=== PATIENT | female | born 1965 | race Caucasian/White ===

== ENCOUNTER 2016-12-02 11:45 | Emergency (ER) | payer OTHER ==
[~2016-12-02] VITALS: Ht 160 cm; Wt 56.7 kg
[~2016-12-02 11:45] MED LIST: HYDROCODONE BIT1 T11 PO; MOTRIN800 MG PO; NAPROSYN500 MG PO; PROVERA5 MG PO; VICODIN 500 MG-1 TAB PO
[2016-12-02] MEDS ORDERED: NAPROSYN500 MG PO ×2 (12:25→13:12)
== END 2016-12-02 13:01 | disposition home or self-care (01) ==
LOC: ED 11:45
DX: M25.561 Pain in right knee (principal); M25.461 Effusion, right knee; F17.200 Nicotine dependence, unspecified, uncomplicated; Z88.1 Allergy status to other antibiotic agents

== ENCOUNTER → 2022-11-07 | Outpatient (CLI) | payer OTHER | END | disposition home or self-care (01) | LOC: MRI 00:26 | PROVIDERS: ATTEND Internal Medicine | DX: M47.816 Spondylosis without myelopathy or radiculopathy, lumbar region (principal); M51.36 Other intervertebral disc degeneration, lumbar region; M48.07 Spinal stenosis, lumbosacral region; M48.061 Spinal stenosis, lumbar region without neurogenic claudication ==

== ENCOUNTER 2023-08-24 09:38 | Emergency (ER) | payer OTHER ==
[~2023-08-24] VITALS: Ht 160 cm; Wt 54.9 kg
[2023-08-24] MEDS ORDERED: Albuterol Sulf/Ipratropium 3 ML VIAL NEB ONE (10:00)
[2023-08-24 10:12] LABS: BASO # 0.1 10*3/uL (0.0-0.1); BASO % 1.2 % (0.0-1.0); EOS % 12.7 % (1.0-4.0); HEMATOCRIT 42.9 % (37.0-47.0); LYMPH # 1.9 10*3/uL (1.3-4.4); MEAN CELL VOLUME 88.3 fl (81.0-99.0); MEAN CORPUSCULAR HGB CONC 32.9 g/dl (33.0-37.0); MEAN PLATELET VOLUME 9.5 fl (9.6-12.3); MONO # 0.6 10*3/uL (0.1-1.0); MONO % 7.3 % (3.0-9.0); NEUT # 4.3 10*3/uL (2.3-7.9); NEUT % 54.5 % (47.0-73.0); PLATELET COUNT AUTOMATED 346 10*3/uL (130-400); RED BLOOD COUNT 4.86 10*6/uL (4.10-5.10); RED CELL DISTRI WIDTH 12.6 % (0-14.5); WHITE BLOOD COUNT 7.8 10*3/uL (4.8-10.8)
[2023-08-24] MEDS ORDERED: Ipratropium Brom3 ML INH (10:26)
[2023-08-24] MEDS ORDERED: PREDNISONE50 MG PO (10:26)
[2023-08-24] MEDS ORDERED: ZITHROMAX250 MG PO (10:26)
[2023-08-24] MEDS ORDERED: PROAIR RESPICL90 MCG INH (10:26)
[2023-08-24 10:45] LABS: ALKALINE PHOSPHATASE 84 U/L (46-116); BUN 14 mg/dl (9-23); CHLORIDE 108 mmol/L (98-107); POTASSIUM 4.2 mmol/L (3.4-5.1); SGPT/ALT 13 U/L (5-49); TOTAL PROTEIN 7.3 gm/dL (6.0-8.0)
== END 2023-08-24 11:18 | disposition home or self-care (01) ==
LOC: ED 09:38
PROVIDERS: Student in an Organized Health Care Education/Training Program
DX: J45.909 Unspecified asthma, uncomplicated (principal); Z88.1 Allergy status to other antibiotic agents; Z90.710 Acquired absence of both cervix and uterus

== ENCOUNTER 2023-08-25 16:54 | Inpatient (IN) | payer OTHER ==
[~2023-08-25] VITALS: Ht 160 cm; Wt 53.2 kg
[~2023-08-25 16:54] MED LIST changes: +Ipratropium Brom3 ML INH; +PREDNISONE50 MG PO; +PROAIR RESPICL90 MCG INH; +ZITHROMAX250 MG PO
[2023-08-25 17:06] VITALS: BP 146/72
[2023-08-25] MEDS ORDERED: methylPREDNISolone sod succ 125 MG VIAL IV ONE (17:40)
[2023-08-25] MEDS ORDERED: Albuterol Sulf/Ipratropium 3 ML VIAL NEB ONE (17:55)
[2023-08-25 17:58] LABS: BASO % 0.2 % (0.0-1.0); LYMPH # 0.8 10*3/uL (1.3-4.4); MEAN CELL VOLUME 88.3 fl (81.0-99.0); MEAN CORPUSCULAR HGB 29.4 pg (27.0-31.0); MEAN CORPUSCULAR HGB CONC 33.3 g/dl (33.0-37.0); MEAN PLATELET VOLUME 9.6 fl (9.6-12.3); MONO # 0.3 10*3/uL (0.1-1.0); MONO % 2.7 % (3.0-9.0); NEUT # 9.3 10*3/uL (2.3-7.9); NEUT % 88.8 % (47.0-73.0); PLATELET COUNT AUTOMATED 331 10*3/uL (130-400); RED BLOOD COUNT 4.53 10*6/uL (4.10-5.10); RED CELL DISTRI WIDTH 12.7 % (0-14.5); WHITE BLOOD COUNT 10.4 10*3/uL (4.8-10.8)
[2023-08-25 18:17] LABS: ALKALINE PHOSPHATASE 84 U/L (46-116); BUN 20 mg/dl (9-23); CHLORIDE 107 mmol/L (98-107); POTASSIUM 4.4 mmol/L (3.4-5.1); SGPT/ALT 15 U/L (5-49); TOTAL PROTEIN 7.2 gm/dL (6.0-8.0)
[2023-08-25] MEDS ORDERED: Ceftriaxone Sodium 1 GM/10 ML SYR IV ONE (19:05)
[2023-08-25] MEDS ORDERED: AZITHROMYCIN 250 ML IV ONE (19:05)
[2023-08-25 19:32] VITALS: BP 140/77
[2023-08-25] MEDS ORDERED: BISACODYL 10 MG SUPP R PRN (20:00)
[2023-08-25] MEDS ORDERED: Ondansetron Hydrochloride 4 MG/2 ML VIAL IV PRN (20:00)
[2023-08-25] MEDS ORDERED: Magnesium Hydroxide 30 ML UDC PO PRN (20:00)
[2023-08-25] MEDS ORDERED: BISACODYL 5 MG TAB PO PRN (20:00)
[2023-08-25] MEDS ORDERED: ACETAMINOPHEN 650 MG SUPP R PRN (20:00)
[2023-08-25] MEDS ORDERED: ACETAMINOPHEN 325 MG TAB PO PRN (20:00)
[2023-08-25] MEDS ORDERED: Albuterol Sulf/Ipratropium 3 ML VIAL NEB SCH (20:05)
[2023-08-25] MEDS ORDERED: Nicotine 21 MG PATCH T PRN (21:30)
[2023-08-25] MEDS ORDERED: GUAIFENESIN 600 MG TAB ER PO SCH (22:00)
[2023-08-25 23:23] VITALS: BP 146/60
[2023-08-26 06:16] VITALS: BP 166/88
[2023-08-26 06:33] LABS: BASO % 0.1 % (0.0-1.0); HEMATOCRIT 41.8 % (37.0-47.0); LYMPH # 1.7 10*3/uL (1.3-4.4); LYMPH % 15.3 % (27.0-41.0); MEAN CELL VOLUME 88.2 fl (81.0-99.0); MEAN CORPUSCULAR HGB 28.5 pg (27.0-31.0); MEAN CORPUSCULAR HGB CONC 32.3 g/dl (33.0-37.0); MEAN PLATELET VOLUME 9.7 fl (9.6-12.3); MONO # 0.7 10*3/uL (0.1-1.0); MONO % 6.1 % (3.0-9.0); NEUT # 8.4 10*3/uL (2.3-7.9); NEUT % 78.1 % (47.0-73.0); PLATELET COUNT AUTOMATED 361 10*3/uL (130-400); RED BLOOD COUNT 4.74 10*6/uL (4.10-5.10); RED CELL DISTRI WIDTH 12.7 % (0-14.5); WHITE BLOOD COUNT 10.8 10*3/uL (4.8-10.8)
[2023-08-26 07:15] LABS: ALKALINE PHOSPHATASE 75 U/L (46-116); BUN 18 mg/dl (9-23); CHLORIDE 108 mmol/L (98-107); CHOLESTEROL 158 mg/dL (<200); LDL CHOLESTEROL 74 mg/dL (9-159); POTASSIUM 4.2 mmol/L (3.4-5.1); SGPT/ALT 17 U/L (5-49); TOTAL PROTEIN 7.1 gm/dL (6.0-8.0); TRIGLYCERIDES 48 mg/dl (<150)
[2023-08-26] MEDS ORDERED: methylPREDNISolone sod succ 40 MG VIAL IV SCH (10:00)
[2023-08-26] MEDS ORDERED: Enoxaparin Sodium 40 MG/0.4 ML SYR SC SCH (10:00)
[2023-08-26 15:10] VITALS: BP 160/80
[2023-08-26] MEDS ORDERED: Ceftriaxone Sodium 1 GM,IV 1 EA in SYRINGE INFUSION 10 ML IV SCH (18:00)
[2023-08-26] MEDS ORDERED: AZITHROMYCIN 250 ML IV SCH (20:00)
[2023-08-26 21:30] VITALS: BP 166/82
[2023-08-27] VITALS: BP 160/82
[2023-08-27 06:17] LABS: BASO % 0.1 % (0.0-1.0); HEMATOCRIT 42.6 % (37.0-47.0); LYMPH # 1.6 10*3/uL (1.3-4.4); LYMPH % 13.6 % (27.0-41.0); MEAN CELL VOLUME 88.8 fl (81.0-99.0); MEAN CORPUSCULAR HGB 28.5 pg (27.0-31.0); MEAN CORPUSCULAR HGB CONC 32.2 g/dl (33.0-37.0); MEAN PLATELET VOLUME 9.9 fl (9.6-12.3); MONO # 0.4 10*3/uL (0.1-1.0); MONO % 3.4 % (3.0-9.0); NEUT # 9.9 10*3/uL (2.3-7.9); NEUT % 82.4 % (47.0-73.0); PLATELET COUNT AUTOMATED 323 10*3/uL (130-400); RED CELL DISTRI WIDTH 12.5 % (0-14.5)
[2023-08-27 06:26] LABS: BUN 18 mg/dl (9-23); CHLORIDE 108 mmol/L (98-107); POTASSIUM 4.5 mmol/L (3.4-5.1)
[2023-08-27 08:00] VITALS: BP 150/88
[2023-08-27] MEDS ORDERED: Cholecalciferol 2,000 UNIT TABLET (50 MCG) PO SCH (10:00)
[2023-08-27 12:00] VITALS: BP 160/70
[2023-08-27 16:24] VITALS: BP 158/86
[2023-08-27 20:00] VITALS: BP 188/87
[2023-08-28] VITALS (8 sets, daily range): BP systolic 129–190; BP diastolic 77–100
[2023-08-28 06:12] LABS: BASO % 0.2 % (0.0-1.0); HEMATOCRIT 40.6 % (37.0-47.0); LYMPH # 1.7 10*3/uL (1.3-4.4); LYMPH % 17.8 % (27.0-41.0); MEAN CORPUSCULAR HGB 28.7 pg (27.0-31.0); MEAN CORPUSCULAR HGB CONC 32.3 g/dl (33.0-37.0); MEAN PLATELET VOLUME 9.9 fl (9.6-12.3); MONO # 0.6 10*3/uL (0.1-1.0); MONO % 6.4 % (3.0-9.0); NEUT # 7.2 10*3/uL (2.3-7.9); NEUT % 75.1 % (47.0-73.0); PLATELET COUNT AUTOMATED 329 10*3/uL (130-400); RED BLOOD COUNT 4.56 10*6/uL (4.10-5.10); RED CELL DISTRI WIDTH 12.5 % (0-14.5); WHITE BLOOD COUNT 9.5 10*3/uL (4.8-10.8)
[2023-08-28] MEDS ORDERED: LISINOPRIL 10 MG TAB PO SCH (07:20)
[2023-08-28] MEDS ORDERED: MAGNESIUM SULFATE 50 ML IV ONE (11:55)
[2023-08-28] MEDS ORDERED: TEMAZEPAM 15 MG CAP PO PRN (22:00)
[2023-08-29] VITALS: BP 134/75
[2023-08-29 06:44] LABS: BUN 14 mg/dl (9-23); CHLORIDE 106 mmol/L (98-107); POTASSIUM 4.9 mmol/L (3.4-5.1)
[2023-08-29 07:50] VITALS: BP 132/78
[2023-08-29 12:00] VITALS: BP 136/87
[2023-08-29 16:00] VITALS: BP 144/87
[2023-08-29 20:00] VITALS: BP 147/84
[2023-08-30] VITALS: BP 142/76
[2023-08-30 06:43] LABS: BASO % 0.1 % (0.0-1.0); EOS % 0.1 % (1.0-4.0); HEMATOCRIT 42.7 % (37.0-47.0); LYMPH # 2.1 10*3/uL (1.3-4.4); LYMPH % 16.9 % (27.0-41.0); MEAN CELL VOLUME 87.5 fl (81.0-99.0); MEAN CORPUSCULAR HGB 29.3 pg (27.0-31.0); MEAN CORPUSCULAR HGB CONC 33.5 g/dl (33.0-37.0); MEAN PLATELET VOLUME 9.8 fl (9.6-12.3); MONO # 0.7 10*3/uL (0.1-1.0); MONO % 5.3 % (3.0-9.0); NEUT # 9.5 10*3/uL (2.3-7.9); NEUT % 76.9 % (47.0-73.0); PLATELET COUNT AUTOMATED 348 10*3/uL (130-400); RED BLOOD COUNT 4.88 10*6/uL (4.10-5.10); RED CELL DISTRI WIDTH 12.7 % (0-14.5); WHITE BLOOD COUNT 12.3 10*3/uL (4.8-10.8)
[2023-08-30 07:10] LABS: BUN 17 mg/dl (9-23); CHLORIDE 104 mmol/L (98-107); POTASSIUM 4.5 mmol/L (3.4-5.1)
[2023-08-30 08:00] VITALS: BP 138/80
[2023-08-30 12:00] VITALS: BP 143/88
[2023-08-30] MEDS ORDERED: LISINOPRIL10 M1 PO (14:12)
[2023-08-30] MEDS ORDERED: PREDNISONE50 MG PO (14:12)
== END 2023-08-30 15:05 | disposition home or self-care (01) | DRG 140 ==
LOC: ED 16:54 → EDHOLD 19:31 → 4E 19:31 → EDHOLD 08-26 07:30 → 4E 08-26 20:05
PROVIDERS: Internal Medicine; Student in an Organized Health Care Education/Training Program; ADMIT Family Medicine; ATTEND Family Medicine
DX: J44.1 Chronic obstructive pulmonary disease with (acute) exacerbation (principal); R73.9 Hyperglycemia, unspecified; F17.210 Nicotine dependence, cigarettes, uncomplicated; R73.03 Prediabetes; E55.9 Vitamin D deficiency, unspecified; Z98.891 History of uterine scar from previous surgery; Z90.711 Acquired absence of uterus with remaining cervical stump; Z78.9 Other specified health status; Z88.1 Allergy status to other antibiotic agents; Z91.041 Radiographic dye allergy status; Z85.41 Personal history of malignant neoplasm of cervix uteri; Z83.3 Family history of diabetes mellitus; Z82.49 Family history of ischemic heart disease and other diseases of the circulatory system; Z80.0 Family history of malignant neoplasm of digestive organs; Z71.6 Tobacco abuse counseling

== ENCOUNTER → 2024-03-26 | Outpatient (CLI) | payer OTHER ==
[~2024-03-26] MED LIST changes: +LISINOPRIL10 M1 PO
== END | disposition home or self-care (01) ==
LOC: MRI 03-23 00:58
PROVIDERS: ATTEND Internal Medicine
DX: G43.909 Migraine, unspecified, not intractable, without status migrainosus (principal)

== ENCOUNTER → 2024-07-30 | Outpatient (CLI) | payer OTHER | END | disposition home or self-care (01) | LOC: CT 09:33 | PROVIDERS: ATTEND Internal Medicine | DX: Z12.2 Encounter for screening for malignant neoplasm of respiratory organs (principal); J43.9 Emphysema, unspecified; K76.0 Fatty (change of) liver, not elsewhere classified; F17.210 Nicotine dependence, cigarettes, uncomplicated ==

== ENCOUNTER → 2024-08-19 | Outpatient (CLI) | payer OTHER | END | disposition home or self-care (01) | LOC: CARD 08-11 10:30 | PROVIDERS: ATTEND Internal Medicine Cardiovascular Disease | DX: R06.02 Shortness of breath (principal); R07.89 Other chest pain ==

== ENCOUNTER 2024-09-21 11:49 | Emergency (ER) | payer OTHER ==
[~2024-09-21] VITALS: Ht 157.4 cm; Wt 49.9 kg
[2024-09-21] MEDS ORDERED: IBUPROFEN 600 MG TAB PO ONE (12:25)
== END 2024-09-21 13:30 | disposition home or self-care (01) ==
LOC: ED 11:49
DX: S82.62XA Displaced fracture of lateral malleolus of left fibula, initial encounter for closed fracture (principal); Z88.1 Allergy status to other antibiotic agents; Z79.899 Other long term (current) drug therapy; Z98.890 Other specified postprocedural states; Z90.711 Acquired absence of uterus with remaining cervical stump; Z91.041 Radiographic dye allergy status; Z87.891 Personal history of nicotine dependence; W50.0XXA Accidental hit or strike by another person, initial encounter; Y93.89 Activity, other specified; Y92.89 Other specified places as the place of occurrence of the external cause; Y99.8 Other external cause status

== ENCOUNTER 2024-09-27 16:10 | Emergency (ER) | payer OTHER ==
[~2024-09-27] VITALS: Ht 160 cm; Wt 54.4 kg
== END 2024-09-27 18:59 | disposition home or self-care (01) ==
LOC: ED 16:10
DX: M79.605 Pain in left leg (principal); F12.90 Cannabis use, unspecified, uncomplicated; F17.200 Nicotine dependence, unspecified, uncomplicated; Z79.899 Other long term (current) drug therapy; Z88.1 Allergy status to other antibiotic agents; Z91.041 Radiographic dye allergy status; Z90.710 Acquired absence of both cervix and uterus; Z98.890 Other specified postprocedural states; W03.XXXA Other fall on same level due to collision with another person, initial encounter; Y93.89 Activity, other specified; Y92.89 Other specified places as the place of occurrence of the external cause; Y99.8 Other external cause status

== ENCOUNTER 2024-12-07 10:53 | Emergency (ER) | payer OTHER ==
[~2024-12-07] VITALS: Ht 160 cm; Wt 56.7 kg
[2024-12-07] MEDS ORDERED: Ondansetron Hydrochloride 4 MG/2 ML VIAL IV ONE (11:45)
[2024-12-07] MEDS ORDERED: diphenhydrAMINE hydrochloride 50 MG/ML VIAL IV ONE (11:45)
[2024-12-07] MEDS ORDERED: Metoclopramide Hydrochloride 10 MG/2 ML VIAL IV ONE (11:45)
[2024-12-07] MEDS ORDERED: SODIUM CHLORIDE 0.9% 500 ML IV ONE (11:45)
[2024-12-07 12:15] LABS: BASO # 0.1 10*3/uL (0.0-0.1); BASO % 0.8 % (0.0-1.0); EOS # 0.2 10*3/uL (0.0-0.4); EOS % 2.7 % (1.0-4.0); MEAN CELL VOLUME 88.2 fl (81.0-99.0); MEAN CORPUSCULAR HGB 28.6 pg (27.0-31.0); MEAN PLATELET VOLUME 9.2 fl (9.6-12.3); MONO # 0.6 10*3/uL (0.1-1.0); MONO % 9.4 % (3.0-9.0); NEUT # 3.8 10*3/uL (2.3-7.9); NEUT % 56.4 % (47.0-73.0); NUCLEATED RED BLOOD CELL 0.0 % (0.0-0.0); NUCLEATED RED BLOOD CELL 0.0 10*3/uL (0.0-0.0); PLATELET COUNT AUTOMATED 341 10*3/uL (130-400); RED CELL DISTRI WIDTH 12.7 % (0-14.5)
[2024-12-07 12:38] LABS: BUN 16 mg/dl (9-23); SGPT/ALT 14 U/L (5-49)
[2024-12-07 12:39] LABS: ETHYL ALCOHOL < 3.0 mg/dl (<3)
[2024-12-07] MEDS ORDERED: BUTALB-ACETAMI1 EACH PO (13:31)
[2024-12-07] MEDS ORDERED: Ondansetron4 MG PO (13:31)
== END 2024-12-07 13:39 | disposition home or self-care (01) ==
LOC: ED 10:53
PROVIDERS: Emergency Medicine
DX: G43.909 Migraine, unspecified, not intractable, without status migrainosus (principal); F17.200 Nicotine dependence, unspecified, uncomplicated; F10.10 Alcohol abuse, uncomplicated; F19.20 Other psychoactive substance dependence, uncomplicated; Y90.9 Presence of alcohol in blood, level not specified; Z79.899 Other long term (current) drug therapy; Z88.1 Allergy status to other antibiotic agents; Z91.041 Radiographic dye allergy status; Z90.710 Acquired absence of both cervix and uterus; Z98.890 Other specified postprocedural states

== ENCOUNTER 2025-01-24 18:10 | Emergency (ER) | payer OTHER ==
[~2025-01-24] VITALS: Ht 160 cm; Wt 54.4 kg
[~2025-01-24 18:10] MED LIST changes: +BUTALB-ACETAMI1 EACH PO; +Ondansetron4 MG PO
[2025-01-24] MEDS ORDERED: LISINOPRIL40 MG PO (18:53)
[2025-01-24] MEDS ORDERED: HYDROCHLOROTH12.5 M2 PO (18:53)
[2025-01-24] MEDS ORDERED: AMLODIPINE BESYL5 MG PO (18:53)
[2025-01-24] MEDS ORDERED: METHOCARBAMOL750 M1 PO (20:45)
[2025-01-24] MEDS ORDERED: PREDNISONE20 M1 PO (20:45)
[2025-01-24] MEDS ORDERED: NAPROSYN500 MG PO (20:45)
[2025-01-24] MEDS ORDERED: predniSONE 20 MG TAB PO ONE (20:50)
[2025-01-24] MEDS ORDERED: METHOCARBAMOL 750 MG TAB PO ONE (20:50)
== END 2025-01-24 21:00 | disposition home or self-care (01) ==
LOC: ED 18:10
DX: S00.10XA Contusion of unspecified eyelid and periocular area, initial encounter (principal); M54.12 Radiculopathy, cervical region; J44.9 Chronic obstructive pulmonary disease, unspecified; G43.909 Migraine, unspecified, not intractable, without status migrainosus; J45.909 Unspecified asthma, uncomplicated; I10 Essential (primary) hypertension; F17.210 Nicotine dependence, cigarettes, uncomplicated; Z98.890 Other specified postprocedural states; Z90.710 Acquired absence of both cervix and uterus; Z88.1 Allergy status to other antibiotic agents; Z88.8 Allergy status to other drugs, medicaments and biological substances; W01.0XXA Fall on same level from slipping, tripping and stumbling without subsequent striking against object, initial encounter; Y93.01 Activity, walking, marching and hiking; Y92.89 Other specified places as the place of occurrence of the external cause; Y99.8 Other external cause status